=== PATIENT | female | born 1950 | race Caucasian/White ===

== ENCOUNTER 2019-07-10 07:43 | Day surgery (SDC) | payer OTHER ==
[~2019-07-10 07:43] MED LIST: ASA81 MG PO; COZAAR100 MG PO; DICLOFENAC SODI50 MG PO; FOSAMAX70 MG PO; LEVO-T100 MCG PO; LIPITOR20 MG PO; NEURONTIN300 MG PO; NORVASC2.5 MG PO; TOLTERODINE TART4 MG PO; ZANTAC150 M3 PO
== END 2019-07-10 16:15 | disposition home or self-care (01) ==
LOC: CIR.AMB 07:43
DX: M99.73 Connective tissue and disc stenosis of intervertebral foramina of lumbar region (principal)

== ENCOUNTER 2019-09-25 07:45 | Day surgery (SDC) | payer OTHER | END 2019-09-25 17:35 | disposition home or self-care (01) | LOC: CIR.AMB 07:45 | DX: M99.73 Connective tissue and disc stenosis of intervertebral foramina of lumbar region (principal) ==